=== PATIENT | male | born 1975 | race Two or more races ===

== ENCOUNTER 2022-02-06 20:24 | Emergency (ER) | payer MEDICAID ==
[~2022-02-06] VITALS: Ht 170.2 cm; Wt 71.3 kg
[2022-02-06] MEDS ORDERED: ONDANSETRON HCL 4MG/2ML INJ IV ONE (22:30)
[2022-02-06] MEDS ORDERED: PROPOFOL 200MG/20ML VIAL IV ONE (22:30)
[2022-02-06] MEDS ORDERED: KETAMINE HCL 50 MG/ML 10ML IV ONE (22:30)
[2022-02-07 01:43] VITALS: BP 150/109
== END 2022-02-07 03:41 | disposition home or self-care (01) ==
LOC: ER 20:24
DX: S52.692A Other fracture of lower end of left ulna, initial encounter for closed fracture (principal); W51.XXXA Accidental striking against or bumped into by another person, initial encounter; Y93.89 Activity, other specified; Y92.488 Other paved roadways as the place of occurrence of the external cause
CPT/HCPCS: 25605; 73090; 73110; 96374; 99152; 99285; J2405; J2704; J3490